=== PATIENT | male | born 1965 | race Caucasian/White ===

== ENCOUNTER 2020-02-21 13:03 | Outpatient (CLI) | payer BC, SELFPAY ==
--- NOTE | 2020-02-21 13:23 | XR_ITS ---
WS: [id number] ABDOMEN Supine view of the abdomen CLINICAL INFORMATION: NEPHROLITHIASIS COMPARISON: None. FINDINGS: Normal bowel gas pattern. Scattered air normal caliber small and large bowel. No significant bowel di stention. Normal bony pelvis. No visualized renal parenchymal or ureteral calculi. XR/XR abdomen 1V* [id number] IMPRESSION: 1. Normal bowel gas pattern. 2. No visualized renal parenchymal or ureteral calculi.
== END 2020-02-21 13:04 | disposition home or self-care (01) ==
PROVIDERS: Family Provider Electrodiagnostic Medicine; PCP Electrodiagnostic Medicine; Visit Provider Electrodiagnostic Medicine
DX: N20.0 Calculus of kidney (principal)
CPT/HCPCS: 74018

== ENCOUNTER → 2020-03-22 13:24 | Outpatient (BNVA) | payer BC, SELFPAY | PROVIDERS: Family Provider Electrodiagnostic Medicine; PCP Electrodiagnostic Medicine; Visit Provider Nurse Practitioner Family | DX: Z84.1 Family history of disorders of kidney and ureter (principal); R30.0 Dysuria; R31.29 Other microscopic hematuria; Z87.442 Personal history of urinary calculi | CPT/HCPCS: 80053; 81001; 88112 ==

== ENCOUNTER 2020-04-04 06:49 | Outpatient (CLI) | payer BC, SELFPAY ==
[2020-04-04] MEDS: iohexol 300 mg/mL 100 mL Btl IV (07:35)
--- NOTE | 2020-04-04 08:30 | CT_ITS ---
WS: [id number] CT ABDOMEN AND PELVIS WITH AND WITHOUT CONTRAST HISTORY: MICROSCOPIC HEMATURIA TECHNIQUE: Unenhanced 5 mm axial imaging first performed through the abdomen. Post contrast imaging t hrough the abdomen and pelvis. Oral contrast has not been provided. Sagittal and coronal reformats a re submitted. All CT scans at [facility] use at least one of these dose optimization tech niques: automated exposure control; mA and/or kV adjustment per patient size (includes targeted exams where dose is matched to clinical indication); or iterative reconstruction. CONTRAST: Omnipaque 300; 95 mL IV. DLP: 2481.31 mGy.cm COMPARISON: 03/18/2007. Chronic emphysema at the lung bases. Heart size is normal. Small hiatal hernia. Hepatic and splenic granulomata. No masses. Normal gallbladder, adrenal glands and pancreas. Mild ath erosclerosis aorta with no aneurysm. RIGHT kidney: Normal size RIGHT kidney. Very mild perinephric stranding. No obstruction, solid or cys tic mass. There is a small extrarenal pelvis. There is very good contrast distention of the renal pel vis and ureter on the delayed imaging. No filling defects. LEFT kidney: Normal size LEFT kidney with perinephric stranding. No calcifications or obstruction. No solid or cystic mass. There is very good contrast distention of the ureter. No filling defects. No adenopathy, free air or ascites. There are a few tiny central mesenteric lymph nodes surrounded by mesenteric misting. Similar to the prior study from 2006. Mild constipation. No GI tract obstruction. Urinary bladder well distended. No filling defects or wall thickening. No significant enlargement of the prostate gland. No osteoblastic or osteolytic bone lesions. Early osteonecrosis suspected at the LEFT femoral head. CT/CT abdomen pelvis wo/w [id number] IMPRESSION: 1. Very mild perinephric stranding with no renal or ureteral calcification or solid mass. 2. Negative urinary bladder. 3. Mild atherosclerosis aorta.
== END 2020-04-04 06:50 | disposition home or self-care (01) ==
LOC: CT 06:53
PROVIDERS: PCP Electrodiagnostic Medicine; Visit Provider Nurse Practitioner Family
DX: R31.29 Other microscopic hematuria (principal); I70.0 Atherosclerosis of aorta
CPT/HCPCS: 74178

== ENCOUNTER → 2020-04-27 08:13 | Outpatient (BNVA) | payer BC, SELFPAY | PROVIDERS: PCP Electrodiagnostic Medicine; Visit Provider Urology | DX: R31.29 Other microscopic hematuria (principal); R30.0 Dysuria; N41.9 Inflammatory disease of prostate, unspecified | CPT/HCPCS: 81003 ==

== ENCOUNTER → 2020-06-08 09:02 | Outpatient (BNVA) | payer BC, SELFPAY | PROVIDERS: PCP Electrodiagnostic Medicine; Visit Provider Urology | DX: R31.29 Other microscopic hematuria (principal); N41.9 Inflammatory disease of prostate, unspecified | CPT/HCPCS: 81003 ==

== ENCOUNTER → 2020-07-03 08:11 | Outpatient (BNVA) | payer BC, SELFPAY | PROVIDERS: PCP Electrodiagnostic Medicine; Visit Provider Urology | DX: R31.29 Other microscopic hematuria (principal); R30.0 Dysuria; N41.9 Inflammatory disease of prostate, unspecified; R10.2 Pelvic and perineal pain | CPT/HCPCS: 81003 ==

== ENCOUNTER → 2020-08-28 07:40 | Outpatient (BNVA) | payer BC, SELFPAY | PROVIDERS: PCP Electrodiagnostic Medicine; Visit Provider Urology | DX: N41.9 Inflammatory disease of prostate, unspecified (principal); R31.29 Other microscopic hematuria; R10.2 Pelvic and perineal pain | CPT/HCPCS: 81003 ==

== ENCOUNTER → 2020-10-29 08:10 | Outpatient (BNVA) | payer BC, SELFPAY | PROVIDERS: PCP Electrodiagnostic Medicine; Visit Provider Urology | DX: N41.9 Inflammatory disease of prostate, unspecified (principal); R10.2 Pelvic and perineal pain | CPT/HCPCS: 81003 ==

== ENCOUNTER → 2021-01-28 08:20 | Outpatient (BNVA) | payer BC, SELFPAY | PROVIDERS: PCP Electrodiagnostic Medicine; Visit Provider Urology | DX: R31.29 Other microscopic hematuria (principal); N41.9 Inflammatory disease of prostate, unspecified; R10.2 Pelvic and perineal pain | CPT/HCPCS: 81003 ==

== ENCOUNTER → 2021-05-02 08:02 | Outpatient (BNVA) | payer BC, SELFPAY | PROVIDERS: PCP Electrodiagnostic Medicine; Visit Provider Urology | DX: N41.9 Inflammatory disease of prostate, unspecified (principal) | CPT/HCPCS: 81003 ==

== ENCOUNTER → 2021-08-06 08:08 | Outpatient (BNVA) | payer BC, SELFPAY | PROVIDERS: PCP Electrodiagnostic Medicine; Visit Provider Urology | DX: N41.9 Inflammatory disease of prostate, unspecified (principal) | CPT/HCPCS: 81003 ==

== ENCOUNTER → 2021-09-16 09:45 | Outpatient (BNVA) | payer BC, SELFPAY | PROVIDERS: PCP Electrodiagnostic Medicine; Visit Provider Nurse Practitioner Family | DX: R10.2 Pelvic and perineal pain (principal) | CPT/HCPCS: 87086 ==

== ENCOUNTER 2021-09-26 14:18 | Outpatient (CLI) | payer BC, SELFPAY ==
--- NOTE | 2021-09-26 14:30 | XR_ITS ---
WS: [id number] KUB, AP view, 09/26/2021 Clinical Data: STONES Comparison: KUB, 02/21/2020. Findings: No abnormal intraabdominal masses or calcifications are seen. There is no dilatated small bowel or ev idence of obstruction. There is a moderate amount of fecal material throughout the colon. XR/XR KUB [id number] Impression: Negative KUB.
== END 2021-09-26 14:19 | disposition home or self-care (01) ==
PROVIDERS: PCP Electrodiagnostic Medicine; Visit Provider Nurse Practitioner Family
DX: Z87.442 Personal history of urinary calculi (principal)
CPT/HCPCS: 74018; 81003

== ENCOUNTER → 2022-01-02 08:50 | Outpatient (BNVA) | payer BC, SELFPAY | PROVIDERS: PCP Electrodiagnostic Medicine; Visit Provider Urology | DX: R30.0 Dysuria (principal) | CPT/HCPCS: 81003 ==

== ENCOUNTER → 2022-04-29 13:50 | Outpatient (BNVA) | payer BC, SELFPAY | PROVIDERS: PCP Electrodiagnostic Medicine; Visit Provider Urology | DX: N20.9 Urinary calculus, unspecified (principal); N41.1 Chronic prostatitis; R10.2 Pelvic and perineal pain | CPT/HCPCS: 81003 ==

== ENCOUNTER 2022-11-11 08:19 | Outpatient (CLI) | payer BC, SELFPAY ==
[2022-11-11 09:34] LABS: Prostate Specific AG Urology 1.71 ng/mL (0-4)
== END 2022-11-11 08:20 | disposition home or self-care (01) ==
LOC: LAB 08:24
PROVIDERS: PCP Electrodiagnostic Medicine; Visit Provider Urology
DX: Z12.5 Encounter for screening for malignant neoplasm of prostate (principal)
CPT/HCPCS: 36415; 84153

== ENCOUNTER → 2022-11-18 13:51 | Outpatient (BNVA) | payer BC, SELFPAY | PROVIDERS: PCP Electrodiagnostic Medicine; Visit Provider Urology | DX: N41.9 Inflammatory disease of prostate, unspecified (principal); N41.1 Chronic prostatitis; R10.2 Pelvic and perineal pain; Z87.442 Personal history of urinary calculi; Z12.5 Encounter for screening for malignant neoplasm of prostate; Z80.42 Family history of malignant neoplasm of prostate | CPT/HCPCS: 81003 ==